=== PATIENT | female | born 1995 | race African-American/Black ===

== ENCOUNTER 2016-03-26 16:54 | Emergency (ER) | payer MEDICAID ==
[~2016-03-26] VITALS: Ht 172.7 cm; Wt 109.1 kg
[2016-03-26] MEDS ORDERED: PRIL40 PO (17:01)
[2016-03-26] MEDS ORDERED: PRENATAL FORMU1 EAC3 PO (17:01)
[2016-03-26] MEDS ORDERED: FOLIC ACID0.4 MG PO (17:01)
[2016-03-26] MEDS ORDERED: KEPPRA750 MG PO (17:02)
[2016-03-26 18:14] LABS: ADJUSTED CALCIUM 9.4 mg/dL (8.4-10.2); ALBUMIN 4.5 gm/dL (3.5-5.0); BASO % 0.2 % (0.0-2.0); BILIRUBIN,TOTAL 0.5 mg/dL (0.0-1.0); CALCIUM 9.8 mg/dL (8.4-10.2); CREATININE, serum 0.74 mg/dL (0.52-1.25); EOS # 0.2 (0.0-0.7); EOS % 2.8 % (0-4.0); GRAN # 2.2 (1.4-6.5); HEMATOCRIT 45.4 % (35.0-45.0); HEMOGLOBIN 14.4 g/dl (12.0-15.0); LYMPH # 3.2 (1.2-3.4); LYMPH % 51.1 % (20.0-51.0); MEAN CELL VOLUME 86 fl (80.0-95.0); MEAN CORPUSCULAR HEMOGLOBIN 27 pg (26.0-32.0); MEAN CORPUSCULAR HGB CONC 32 g/dl (33.0-37.0); MEAN PLATELET VOLUME 11.3 fl (7.4-10.4); MONO # 0.6 (0.1-0.6); MONO % 9.7 % (1.7-9.3); PLATELET COUNT 224 K/mm3 (130-400); POTASSIUM 4.1 mmol/L (3.4-5.0); RED BLOOD COUNT 5.31 M/mm3 (4.10-5.30); REDCELL DISTRIBUTION WIDTH-CV 14.6 % (11.5-14.5); TOTAL PROTEIN 8.6 gm/dL (6.4-8.2); WHITE BLOOD COUNT 6.2 K/mm3 (4.8-10.8)
[2016-03-26 18:40] LABS: PH 8 (5-8); URINE APPEARANCE Clear; URINE BACTERIA None Seen /hpf; URINE BILIRUBIN Negative (NEGATIVE); URINE BLOOD Negative (NEGATIVE); URINE COLOR Yellow; URINE GLUCOSE Negative (NEGATIVE); URINE KETONE Negative (NEGATIVE); URINE RBC 0-2 /hpf; URINE UROBILINOGEN Negative (NEGATIVE); URINE WBC 0-2 /hpf
[2016-03-26 19:30] VITALS: BP 136/70; PULSE 84; TEMP 98.4
== END 2016-03-26 19:31 | disposition home or self-care (01) ==
LOC: COL.ER 16:54
PROVIDERS: Physician Assistant Medical
DX: R10.84 Generalized abdominal pain (principal); Z32.02 Encounter for pregnancy test, result negative

== ENCOUNTER 2016-04-30 19:10 | Emergency (ER) | payer MEDICAID ==
[~2016-04-30] VITALS: Ht 172.7 cm; Wt 113.6 kg
[~2016-04-30 19:10] MED LIST: FOLIC ACID0.4 MG PO; KEPPRA750 MG PO; PRENATAL FORMU1 EAC3 PO; PRIL40 PO
[2016-04-30 19:16] VITALS: TEMP 98.6
[2016-04-30] MEDS ORDERED: ZYRTEC 10MG10 MG PO (19:20)
[2016-04-30 19:54] LABS: PH 7 (5-8); URINE APPEARANCE Clear; URINE BACTERIA None Seen /hpf; URINE BILIRUBIN Negative (NEGATIVE); URINE BLOOD Negative (NEGATIVE); URINE COLOR Yellow; URINE GLUCOSE Negative (NEGATIVE); URINE KETONE Negative (NEGATIVE); URINE RBC 0-2 /hpf; URINE UROBILINOGEN Negative (NEGATIVE); URINE WBC 0-2 /hpf
[2016-04-30 20:27] LABS: BASO % 0.3 % (0.0-2.0); EOS # 0.1 (0.0-0.7); EOS % 1.8 % (0-4.0); GRAN # 2.9 (1.4-6.5); GRAN % 47.8 % (42.2-75.2); HEMATOCRIT 41.6 % (35.0-45.0); HEMOGLOBIN 13.2 g/dl (12.0-15.0); LYMPH # 2.5 (1.2-3.4); LYMPH % 42.2 % (20.0-51.0); MEAN CELL VOLUME 85 fl (80.0-95.0); MEAN CORPUSCULAR HEMOGLOBIN 27 pg (26.0-32.0); MEAN CORPUSCULAR HGB CONC 32 g/dl (33.0-37.0); MEAN PLATELET VOLUME 10.6 fl (7.4-10.4); MONO # 0.5 (0.1-0.6); MONO % 7.7 % (1.7-9.3); PLATELET COUNT 262 K/mm3 (130-400); RED BLOOD COUNT 4.89 M/mm3 (4.10-5.30); REDCELL DISTRIBUTION WIDTH-CV 14.4 % (11.5-14.5)
[2016-04-30 20:42] LABS: ADJUSTED CALCIUM 9.4 mg/dL (8.4-10.2); ALANINE AMINOTRANSFERASE 36 U/L (9-52); ALBUMIN 4.2 gm/dL (3.5-5.0); ALKALINE PHOSPHATASE 84 U/L (50-136); ANION GAP 11 mmol/L (7-16); BILIRUBIN,TOTAL 0.5 mg/dL (0.0-1.0); BLOOD UREA NITROGEN 14 mg/dL (7-17); C-REACTIVE PROTEIN < 0.5 mg/dL (0.0-0.9); CALCIUM 9.6 mg/dL (8.4-10.2); CARBON DIOXIDE 28 mmol/L (22-30); CHLORIDE 102 mmol/L (98-107); CREATININE, serum 0.82 mg/dL (0.52-1.25); GLUCOSE 91 mg/dL (74-106); LIPASE 161 U/L (23-300); SODIUM 141 mmol/L (137-145); TOTAL PROTEIN 8.2 gm/dL (6.4-8.2)
[2016-04-30 20:46] LABS: ERYTHROCYTE SEDIMENTATION RATE 14 mm/hr (0-20)
[2016-04-30] MEDS ORDERED: PHENERGAN 25 TA25 MG PO (21:00)
[2016-04-30] MEDS ORDERED: ULTRAM 50MG TAB50 MG PO (21:00)
[2016-04-30 21:30] VITALS: BP 105/80; PULSE 91
== END 2016-04-30 21:34 | disposition home or self-care (01) ==
LOC: COL.ER 19:10
PROVIDERS: Emergency Medicine
DX: R10.11 Right upper quadrant pain (principal); R10.12 Left upper quadrant pain; R10.31 Right lower quadrant pain; R10.32 Left lower quadrant pain
CPT/HCPCS: J1170; J1885; J2550; J7030

== ENCOUNTER 2016-05-30 17:57 | Emergency (ER) | payer MEDICAID ==
[~2016-05-30] VITALS: Ht 172.7 cm; Wt 115.9 kg
[~2016-05-30 17:57] MED LIST changes: +PHENERGAN 25 TA25 MG PO; +ULTRAM 50MG TAB50 MG PO; +ZYRTEC 10MG10 MG PO
[2016-05-30 18:04] VITALS: BP 133/78; TEMP 98.1
[2016-05-30 19:21] LABS: BASO % 0.3 % (0.0-2.0); EOS # 0.1 (0.0-0.7); EOS % 1.8 % (0-4.0); GRAN # 2.6 (1.4-6.5); GRAN % 37.8 % (42.2-75.2); HEMATOCRIT 40.9 % (35.0-45.0); HEMOGLOBIN 13.2 g/dl (12.0-15.0); LYMPH # 3.6 (1.2-3.4); LYMPH % 52.6 % (20.0-51.0); MEAN CELL VOLUME 85 fl (80.0-95.0); MEAN CORPUSCULAR HEMOGLOBIN 27 pg (26.0-32.0); MEAN CORPUSCULAR HGB CONC 32 g/dl (33.0-37.0); MEAN PLATELET VOLUME 10.4 fl (7.4-10.4); MONO # 0.5 (0.1-0.6); MONO % 7.4 % (1.7-9.3); PLATELET COUNT 268 K/mm3 (130-400); RED BLOOD COUNT 4.83 M/mm3 (4.10-5.30); REDCELL DISTRIBUTION WIDTH-CV 14.3 % (11.5-14.5); WHITE BLOOD COUNT 6.8 K/mm3 (4.8-10.8)
[2016-05-30 19:30] LABS: ALBUMIN 4.3 gm/dL (3.5-5.0); BILIRUBIN,TOTAL 0.4 mg/dL (0.0-1.0); CALCIUM 9.2 mg/dL (8.4-10.2); CREATININE, serum 0.78 mg/dL (0.52-1.25); POTASSIUM 3.7 mmol/L (3.4-5.0); TOTAL PROTEIN 7.8 gm/dL (6.4-8.2)
[2016-05-30 20:11] LABS: PH 7 (5-8); URINE APPEARANCE Hazy; URINE BACTERIA Rare /hpf; URINE BILIRUBIN Negative (NEGATIVE); URINE BLOOD Negative (NEGATIVE); URINE COLOR Yellow; URINE GLUCOSE Negative (NEGATIVE); URINE KETONE Negative (NEGATIVE); URINE RBC 0-2 /hpf; URINE UROBILINOGEN Negative (NEGATIVE); URINE WBC 0-2 /hpf
[2016-05-30 21:01] VITALS: PULSE 85
== END 2016-05-30 21:00 | disposition home or self-care (01) ==
LOC: COL.ER 17:57
PROVIDERS: Family Medicine
DX: R10.84 Generalized abdominal pain (principal); H54.0 Blindness, both eyes; G40.909 Epilepsy, unspecified, not intractable, without status epilepticus
CPT/HCPCS: J2550; J7030

== ENCOUNTER 2016-07-10 18:29 | Emergency (ER) | payer MEDICAID ==
[~2016-07-10] VITALS: Ht 172.7 cm; Wt 122.3 kg
[2016-07-10 18:35] VITALS: BP 123/73; TEMP 98.3
[2016-07-10 20:14] LABS: PH 6 (5-8); URINE APPEARANCE Hazy; URINE BACTERIA Rare /hpf; URINE BILIRUBIN Negative (NEGATIVE); URINE BLOOD Negative (NEGATIVE); URINE COLOR Yellow; URINE GLUCOSE Negative (NEGATIVE); URINE KETONE Trace (NEGATIVE); URINE RBC 0-2 /hpf; URINE UROBILINOGEN Negative (NEGATIVE); URINE WBC 0-2 /hpf
[2016-07-10] MEDS ORDERED: GLUCOPHAGE500 MG/TAB PO (20:37)
[2016-07-10 20:53] LABS: BASO % 0.4 % (0.0-2.0); EOS # 0.1 (0.0-0.7); EOS % 1.6 % (0-4.0); GRAN # 2.5 (1.4-6.5); GRAN % 47.7 % (42.2-75.2); HEMATOCRIT 42.3 % (37.0-47.0); HEMOGLOBIN 13.5 g/dl (12.5-16.0); LYMPH # 2.2 (1.2-3.4); LYMPH % 43.7 % (20.0-51.0); MEAN CELL VOLUME 85 fl (80.0-100.0); MEAN CORPUSCULAR HEMOGLOBIN 27 pg (27.0-31.0); MEAN CORPUSCULAR HGB CONC 32 g/dl (33.0-37.0); MONO # 0.3 (0.1-0.6); MONO % 6.4 % (1.7-9.3); PLATELET COUNT 276 K/mm3 (130-400); RED BLOOD COUNT 4.97 M/mm3 (4.10-5.30); REDCELL DISTRIBUTION WIDTH-CV 14.2 % (11.5-14.5); WHITE BLOOD COUNT 5.1 K/mm3 (4.8-10.8)
[2016-07-10 21:05] LABS: ALANINE AMINOTRANSFERASE 23 U/L (9-52); ALBUMIN 4.5 gm/dL (3.5-5.0); ALKALINE PHOSPHATASE 94 U/L (50-136); ANION GAP 13 mmol/L (7-16); BILIRUBIN,TOTAL 0.4 mg/dL (0.0-1.0); BLOOD UREA NITROGEN 11 mg/dL (7-17); C-REACTIVE PROTEIN 0.6 mg/dL (0.0-0.9); CALCIUM 9.4 mg/dL (8.4-10.2); CARBON DIOXIDE 26 mmol/L (22-30); CHLORIDE 103 mmol/L (98-107); GLUCOSE 83 mg/dL (74-106); POTASSIUM 3.8 mmol/L (3.4-5.0); SODIUM 143 mmol/L (137-145)
[2016-07-10 21:54] VITALS: PULSE 75
== END 2016-07-10 21:54 | disposition home or self-care (01) ==
LOC: COL.ER 18:29
PROVIDERS: Nurse Practitioner
DX: R10.10 Upper abdominal pain, unspecified (principal); R11.2 Nausea with vomiting, unspecified; J45.909 Unspecified asthma, uncomplicated

== ENCOUNTER → 2016-08-13 | Outpatient (CLI) | payer MEDICAID ==
[~2016-08-13] MED LIST changes: +GLUCOPHAGE500 MG/TAB PO
== END ==
LOC: MC.RAD 13:00
DX: N64.52 Nipple discharge (principal)

== ENCOUNTER 2017-08-08 15:41 | Emergency (ER) | payer MEDICAID ==
[~2017-08-08] VITALS: Ht 170.2 cm; Wt 113.6 kg
[2017-08-08 17:49] LABS: BASO % 0.3 % (0.0-2.0); EOS # 0.1 (0.0-0.7); EOS % 1.3 % (0-4.0); GRAN % 44.2 % (42.2-75.2); HEMATOCRIT 41.2 % (37.0-47.0); HEMOGLOBIN 13.7 g/dl (12.5-16.0); LYMPH # 3.1 (1.2-3.4); LYMPH % 46.3 % (20.0-51.0); MEAN CELL VOLUME 85 fl (80.0-100.0); MEAN CORPUSCULAR HEMOGLOBIN 28 pg (27.0-31.0); MEAN CORPUSCULAR HGB CONC 33 g/dl (33.0-37.0); MEAN PLATELET VOLUME 11.5 fl (7.4-10.4); MONO # 0.5 (0.1-0.6); MONO % 7.8 % (1.7-9.3); PLATELET COUNT 229 K/mm3 (130-400); RED BLOOD COUNT 4.84 M/mm3 (4.10-5.30); REDCELL DISTRIBUTION WIDTH-CV 14.2 % (11.5-14.5)
[2017-08-08 18:01] LABS: BILIRUBIN,TOTAL 0.6 mg/dL (0.0-1.0); C-REACTIVE PROTEIN 0.7 mg/dL (0.0-0.9); CALCIUM 9.4 mg/dL (8.4-10.2); CREATININE, serum 0.7 mg/dL (0.52-1.25)
[2017-08-08 18:16] LABS: POTASSIUM 4.7 mmol/L (3.4-5.0)
[2017-08-08 18:17] LABS: TOTAL PROTEIN 8.4 gm/dL (6.4-8.2)
[2017-08-08] MEDS ORDERED: CARAFATE 1GM1 G PO (18:49)
[2017-08-08] MEDS ORDERED: PROTONIX 40MG T40 MG PO (18:49)
[2017-08-08 19:01] LABS: COLLECTION METHOD CLEAN CATCH
[2017-08-08 19:02] VITALS: BP 122/83; PULSE 84
[2017-08-08 19:07] LABS: MUCOUS Present /lpf; PH 6 (5-8); URINE APPEARANCE Hazy; URINE BACTERIA Rare /hpf; URINE BILIRUBIN Negative (NEGATIVE); URINE BLOOD Negative (NEGATIVE); URINE COLOR Yellow; URINE GLUCOSE Negative (NEGATIVE); URINE KETONE Negative (NEGATIVE); URINE LEUKOCYTE ESTERASE Negative (NEGATIVE); URINE NITRATE Negative (NEGATIVE); URINE PROTEIN(semi-quant) Negative (NEGATIVE); URINE UROBILINOGEN Negative (NEGATIVE)
== END 2017-08-08 19:25 | disposition home or self-care (01) ==
LOC: COL.ER 15:41
PROVIDERS: Emergency Medicine
DX: R10.13 Epigastric pain (principal); Z87.891 Personal history of nicotine dependence; Z79.84 Long term (current) use of oral hypoglycemic drugs
CPT/HCPCS: J1885

== ENCOUNTER → 2017-09-15 | Outpatient (CLI) | payer MEDICAID ==
[~2017-09-15] MED LIST changes: +CARAFATE 1GM1 G PO; +PROTONIX 40MG T40 MG PO
== END ==
LOC: COL.RAD 07:57
DX: R10.9 Unspecified abdominal pain (principal)

== ENCOUNTER → 2017-09-16 | Outpatient (CLI) | payer MEDICAID | LOC: COL.RAD 07:53 | DX: R68.81 Early satiety (principal); R11.0 Nausea | CPT/HCPCS: A9541 ==

== ENCOUNTER → 2017-09-26 | Outpatient (CLI) | payer MEDICAID ==
[2017-09-29 19:44] LABS: TISSUE TRANSGLU IGA <1.2 U/mL (())
== END ==
LOC: COL.LAB 10:33
PROVIDERS: Family Medicine
DX: Z01.89 Encounter for other specified special examinations (principal)

== ENCOUNTER → 2017-10-01 | Outpatient (CLI) | payer MEDICAID ==
[2017-10-01 15:26] LABS: BASO % 0.4 % (0.0-2.0); EOS # 0.2 (0.0-0.7); EOS % 3.3 % (0-4.0); GRAN # 1.8 (1.4-6.5); GRAN % 32.6 % (42.2-75.2); HEMATOCRIT 39.4 % (37.0-47.0); HEMOGLOBIN 12.4 g/dl (12.5-16.0); LYMPH # 3.1 (1.2-3.4); LYMPH % 56.7 % (20.0-51.0); MEAN CELL VOLUME 89 fl (80.0-100.0); MEAN CORPUSCULAR HEMOGLOBIN 28 pg (27.0-31.0); MEAN CORPUSCULAR HGB CONC 32 g/dl (33.0-37.0); MEAN PLATELET VOLUME 10.6 fl (7.4-10.4); MONO # 0.4 (0.1-0.6); PLATELET COUNT 311 K/mm3 (130-400); RED BLOOD COUNT 4.45 M/mm3 (4.10-5.30); REDCELL DISTRIBUTION WIDTH-CV 14.2 % (11.5-14.5)
[2017-10-01 15:38] LABS: ALBUMIN 3.8 gm/dL (3.5-5.0); BILIRUBIN,TOTAL 0.2 mg/dL (0.0-1.0); CALCIUM 8.5 mg/dL (8.4-10.2); CHOLESTEROL RISK RATIO 2.8; CREATININE, serum 0.8 mg/dL (0.52-1.25); TOTAL PROTEIN 7.3 gm/dL (6.4-8.2)
[2017-10-01 16:06] LABS: TSH w REFLEX 1.89 uIU/mL (0.465-4.680)
== END ==
LOC: COL.LAB 08:47
PROVIDERS: Family Medicine
DX: Z00.00 Encounter for general adult medical examination without abnormal findings (principal); Z13.1 Encounter for screening for diabetes mellitus; Z13.220 Encounter for screening for lipoid disorders

== ENCOUNTER → 2017-10-09 | Outpatient (CLI) | payer MEDICAID | LOC: COL.LAB 07:55 | DX: Z01.89 Encounter for other specified special examinations (principal); Z53.9 Procedure and treatment not carried out, unspecified reason ==

== ENCOUNTER 2017-11-14 13:05 | Emergency (ER) | payer MEDICAID ==
[~2017-11-14] VITALS: Ht 170.2 cm; Wt 118.2 kg
[2017-11-14 13:06] VITALS: TEMP 98
[2017-11-14 13:42] LABS: COLLECTION METHOD CLEAN CATCH
[2017-11-14 13:47] LABS: MUCOUS Present /lpf; PH 6 (5-8); URINE APPEARANCE Hazy; URINE BACTERIA None Seen /hpf; URINE BILIRUBIN Negative (NEGATIVE); URINE BLOOD Negative (NEGATIVE); URINE COLOR Yellow; URINE GLUCOSE Negative (NEGATIVE); URINE KETONE Negative (NEGATIVE); URINE LEUKOCYTE ESTERASE Negative (NEGATIVE); URINE NITRATE Negative (NEGATIVE); URINE PROTEIN(semi-quant) Negative (NEGATIVE); URINE RBC 0-2 /hpf
[2017-11-14] MEDS ORDERED: PEPCID 20MG TAB20 MG PO (16:47)
[2017-11-14] MEDS ORDERED: ZOFRAN ODT4 MG PO (16:54)
[2017-11-14 17:13] VITALS: BP 122/70; PULSE 90
== END 2017-11-14 17:15 | disposition home or self-care (01) ==
LOC: COL.ER 13:05
PROVIDERS: Emergency Medicine
DX: K29.70 Gastritis, unspecified, without bleeding (principal)
CPT/HCPCS: J2550; J7030

== ENCOUNTER → 2017-11-24 | Outpatient (CLI) | payer MEDICAID ==
[~2017-11-24] MED LIST changes: +PEPCID 20MG TAB20 MG PO; +ZOFRAN ODT4 MG PO
[2017-11-25 12:31] LABS: HELICOBACTER IgG 0.28 OD Ratio (<0.8)
== END ==
LOC: COL.LAB 08:43
PROVIDERS: Family Medicine
DX: K29.70 Gastritis, unspecified, without bleeding (principal); R76.8 Other specified abnormal immunological findings in serum; R19.5 Other fecal abnormalities

== ENCOUNTER → 2017-12-03 | Outpatient (CLI) | payer MEDICAID | LOC: COL.LAB 09:01 | DX: N91.2 Amenorrhea, unspecified (principal) ==

== ENCOUNTER → 2017-12-03 | Outpatient (CLI) | payer MEDICAID ==
[2017-12-03 10:09] LABS: BASO % 0.4 % (0.0-2.0); EOS # 0.2 (0.0-0.7); EOS % 3.5 % (0-4.0); GRAN # 1.8 (1.4-6.5); GRAN % 34.1 % (42.2-75.2); HEMOGLOBIN 12.8 g/dl (12.5-16.0); LYMPH # 2.8 (1.2-3.4); LYMPH % 53.9 % (20.0-51.0); MEAN CELL VOLUME 88 fl (80.0-100.0); MEAN CORPUSCULAR HEMOGLOBIN 28 pg (27.0-31.0); MEAN CORPUSCULAR HGB CONC 31 g/dl (33.0-37.0); MEAN PLATELET VOLUME 10.3 fl (7.4-10.4); MONO # 0.4 (0.1-0.6); MONO % 7.9 % (1.7-9.3); PLATELET COUNT 327 K/mm3 (130-400); RED BLOOD COUNT 4.64 M/mm3 (4.10-5.30); REDCELL DISTRIBUTION WIDTH-CV 14.6 % (11.5-14.5)
[2017-12-03 10:16] LABS: BILIRUBIN,TOTAL 0.2 mg/dL (0.0-1.0); CREATININE, serum 0.87 mg/dL (0.52-1.25); POTASSIUM 4.1 mmol/L (3.4-5.0); TOTAL PROTEIN 7.9 gm/dL (6.4-8.2)
== END ==
LOC: COL.LAB 09:04
PROVIDERS: Psychiatry & Neurology Neurology
DX: G40.89 Other seizures (principal); Z85.841 Personal history of malignant neoplasm of brain

== ENCOUNTER 2018-01-15 15:09 | Emergency (ER) | payer SELFPAY ==
[~2018-01-15] VITALS: Ht 170.2 cm; Wt 126.4 kg
[2018-01-15 16:07] LABS: TRICYCLIC ANTIDEPRESS URINE NEGATIVE
[2018-01-15] MEDS ORDERED: EFFEXOR-XR150 MG PO (16:14)
[2018-01-15] MEDS ORDERED: DESYREL 100MG100 MG PO (16:15)
[2018-01-15 17:03] LABS: BASO % 0.3 % (0.0-2.0); EOS # 0.1 (0.0-0.7); EOS % 0.9 % (0-4.0); GRAN # 3.2 (1.4-6.5); HEMATOCRIT 42.3 % (37.0-47.0); HEMOGLOBIN 13.5 g/dl (12.5-16.0); LYMPH # 2.8 (1.2-3.4); LYMPH % 43.4 % (20.0-51.0); MEAN CELL VOLUME 86 fl (80.0-100.0); MEAN CORPUSCULAR HEMOGLOBIN 28 pg (27.0-31.0); MEAN CORPUSCULAR HGB CONC 32 g/dl (33.0-37.0); MEAN PLATELET VOLUME 10.4 fl (7.4-10.4); MONO # 0.4 (0.1-0.6); MONO % 6.2 % (1.7-9.3); PLATELET COUNT 290 K/mm3 (130-400); RED BLOOD COUNT 4.91 M/mm3 (4.10-5.30); REDCELL DISTRIBUTION WIDTH-CV 13.9 % (11.5-14.5)
[2018-01-15 17:12] LABS: ALANINE AMINOTRANSFERASE 26 U/L (9-52); ALBUMIN 4.4 gm/dL (3.5-5.0); ALKALINE PHOSPHATASE 59 U/L (50-136); ANION GAP 7 mmol/L (7-16); AST,SGOT 22 U/L (15-37); BILIRUBIN,TOTAL 0.1 mg/dL (0.0-1.0); BLOOD UREA NITROGEN 11 mg/dL (7-17); CALCIUM 9.7 mg/dL (8.4-10.2); CARBON DIOXIDE 30 mmol/L (22-30); CHLORIDE 106 mmol/L (98-107); CREATININE, serum 1.04 mg/dL (0.52-1.25); GLUCOSE 81 mg/dL (74-106); POTASSIUM 4.1 mmol/L (3.4-5.0); SODIUM 143 mmol/L (137-145); TOTAL PROTEIN 8.2 gm/dL (6.4-8.2)
[2018-01-15 17:17] LABS: ACETAMINOPHEN < 10 ug/mL (10-30); ALCOHOL(ethanol),MEDICAL < 10 mg/dL; SALICYLATE < 1.0 mg/dL
[2018-01-16 09:45] VITALS: TEMP 98.8
[2018-01-16 13:14] VITALS: BP 100/53; PULSE 76
== END 2018-01-16 13:24 ==
LOC: COL.ER 15:09
PROVIDERS: Emergency Medicine
DX: R45.850 Homicidal ideations (principal); F32.9 Major depressive disorder, single episode, unspecified; F41.9 Anxiety disorder, unspecified; J45.909 Unspecified asthma, uncomplicated; K21.9 Gastro-esophageal reflux disease without esophagitis; Z98.890 Other specified postprocedural states; Z87.891 Personal history of nicotine dependence; Z85.841 Personal history of malignant neoplasm of brain

== ENCOUNTER 2018-06-13 17:32 | Emergency (ER) | payer MEDICAID ==
[~2018-06-13] VITALS: Ht 170.2 cm; Wt 118.2 kg
[~2018-06-13 17:32] MED LIST changes: +DESYREL 100MG100 MG PO; +EFFEXOR-XR150 MG PO; +FOLIC ACID 11 MG/TA1 PO; -FOLIC ACID0.4 MG PO
[2018-06-13 17:36] VITALS: BP 123/73; TEMP 97.1
[2018-06-13] MEDS ORDERED: GLUCOPHAGE XR500 M1 PO (17:56)
[2018-06-13] MEDS ORDERED: ATIVAN 1MG T1 MG/TAB PO (17:57)
[2018-06-13] MEDS ORDERED: KEPPRA750 MG PO ×3 (17:58→17:59)
[2018-06-13] MEDS ORDERED: DULERA1 AR1 IH (18:02)
[2018-06-13] MEDS ORDERED: PAZEO2.5 ML OP (18:02)
[2018-06-13] MEDS ORDERED: FIORICET 325 MG1 TA1 PO (18:03)
[2018-06-13] MEDS ORDERED: NUVARING VAG RING VG (18:04)
[2018-06-13 18:17] LABS: COLLECTION METHOD CLEAN CATCH
[2018-06-13 18:37] LABS: MUCOUS Present /lpf; PH 5 (5-8); URINE APPEARANCE Clear; URINE BACTERIA Rare /hpf; URINE BILIRUBIN Negative (NEGATIVE); URINE BLOOD Negative (NEGATIVE); URINE COLOR Yellow; URINE GLUCOSE Negative (NEGATIVE); URINE KETONE Negative (NEGATIVE); URINE LEUKOCYTE ESTERASE Negative (NEGATIVE); URINE NITRATE Negative (NEGATIVE); URINE PROTEIN(semi-quant) Negative (NEGATIVE); URINE RBC 0-2 /hpf; URINE UROBILINOGEN Negative (NEGATIVE); URINE WBC 0-2 /hpf
[2018-06-13 18:42] LABS: BASO % 0.2 % (0.0-2.0); EOS # 0.1 (0.0-0.7); EOS % 0.9 % (0-4.0); GRAN # 2.7 (1.4-6.5); GRAN % 50.6 % (42.2-75.2); HEMATOCRIT 41.2 % (37.0-47.0); HEMOGLOBIN 13.1 g/dl (12.5-16.0); LYMPH # 2.1 (1.2-3.4); LYMPH % 39.9 % (20.0-51.0); MEAN CELL VOLUME 87 fl (80.0-100.0); MEAN CORPUSCULAR HEMOGLOBIN 28 pg (27.0-31.0); MEAN CORPUSCULAR HGB CONC 32 g/dl (33.0-37.0); MEAN PLATELET VOLUME 10.7 fl (7.4-10.4); MONO # 0.4 (0.1-0.6); MONO % 8.2 % (1.7-9.3); PLATELET COUNT 235 K/mm3 (130-400); RED BLOOD COUNT 4.72 M/mm3 (4.10-5.30); REDCELL DISTRIBUTION WIDTH-CV 14.2 % (11.5-14.5)
[2018-06-13 18:56] LABS: ALBUMIN 4.1 gm/dL (3.5-5.0); BILIRUBIN,TOTAL 0.3 mg/dL (0.0-1.0); CALCIUM 9.3 mg/dL (8.4-10.2); CREATININE, serum 0.79 (0.52-1.25); TOTAL PROTEIN 7.7 gm/dL (6.4-8.2)
[2018-06-13 19:35] VITALS: PULSE 85
[2018-06-13] MEDS ORDERED: ZOFRAN 4MG T4 MG/TAB PO (19:42)
== END 2018-06-13 20:00 | disposition home or self-care (01) ==
LOC: COL.ER 17:32
PROVIDERS: Emergency Medicine
DX: B34.9 Viral infection, unspecified (principal); E66.9 Obesity, unspecified; J45.909 Unspecified asthma, uncomplicated; K21.9 Gastro-esophageal reflux disease without esophagitis; R56.9 Unspecified convulsions; Z86.011 Personal history of benign neoplasm of the brain
CPT/HCPCS: J1885; J2405

== ENCOUNTER → 2018-07-14 | Outpatient (CLI) | payer MEDICAID ==
[~2018-07-14] MED LIST changes: +ATIVAN 1MG T1 MG/TAB PO; +DULERA1 AR1 IH; +FIORICET 325 MG1 TA1 PO; +GLUCOPHAGE XR500 M1 PO; +NUVARING VAG RING VG; +PAZEO2.5 ML OP; +ZOFRAN 4MG T4 MG/TAB PO
== END ==
LOC: COL.RAD 09:00
DX: R10.9 Unspecified abdominal pain (principal)